=== PATIENT | male | born 1945 | race Caucasian/White ===

== ENCOUNTER 2018-09-19 07:30 | Day surgery (SDC) | payer MEDICARE ==
[~2018-09-19] VITALS: Ht 185.4 cm; Wt 117.0 kg
[2018-09-19] VITALS (9 sets, daily range): BP systolic 115–162; BP diastolic 77–100; PULSE 62–65; TEMP 97.9
[2018-09-19] MEDS ORDERED: JANUVIA 100MG100 MG PO (07:50)
[2018-09-19] MEDS ORDERED: BYSTOLIC10 MG PO (07:50)
[2018-09-19] MEDS ORDERED: PRINIVIL40 MG PO (07:51)
[2018-09-19] MEDS ORDERED: LIPITOR 10MG10 MG PO (07:51)
[2018-09-19] MEDS ORDERED: GLUCOTROL XL2.5 MG PO (07:51)
[2018-09-19] MEDS ORDERED: MAXZIDE 50 MG-71 TAB PO (07:52)
[2018-09-19] MEDS ORDERED: TRICOR145 MG PO (07:53)
[2018-09-19] MEDS ORDERED: NEURONTIN100 MG/CAP PO (07:53)
[2018-09-19 08:20] LABS: HEMATOCRIT 38.1 % (42.0-52.0); MEAN CELL VOLUME 84 fl (80.0-100.0); MEAN CORPUSCULAR HEMOGLOBIN 29 pg (27.0-31.0); MEAN CORPUSCULAR HGB CONC 34 g/dl (33.0-37.0); MEAN PLATELET VOLUME 10.4 fl (7.4-10.4); PLATELET COUNT 202 K/mm3 (130-400); RED BLOOD COUNT 4.53 M/mm3 (4.20-5.60); REDCELL DISTRIBUTION WIDTH-CV 12.8 % (11.5-14.5)
[2018-09-19 08:26] LABS: PROTHROMBIN TIME 11.5 SECONDS (9.7-12.8)
[2018-09-19 08:31] LABS: CALCIUM 9.6 mg/dL (8.4-10.2); CREATININE, serum 1.95 mg/dL (0.66-1.25); POTASSIUM 3.4 mmol/L (3.4-5.0)
[2018-09-19] MEDS ORDERED: EPA FISH OIL1 SGL PO (08:31)
[2018-09-19] MEDS ORDERED: ASPIRIN E.C. 8181 MG PO (08:32)
--- NOTE | 2018-09-19 10:32 | NUR ---
ALL MEDICATIONS GIVEN WITH VERBAL ORDER AND READBACK WITH MD. SEE MERGE FOR MEDICATION ADMIN TIMES AND RASS ASSESSMENTS DURING AND POST PROCEDURE. POSITIVE BARBEAU'S TEST IN THE RIGHT WRIST. NITROPASTE APPLIED.
--- NOTE | 2018-09-19 12:08 | NUR ---
Was notified by family that they would prefer pt to stay overnight because "insurance will pay for it". This RN explained to family and patient that Dr. Lo does need a medical reason to admit the pt. This RN also called JRAOD Beard and notified her of the family wishes. JAROD Beard aware.
--- NOTE | 2018-09-19 12:30 | NUR ---
Roxann with Case Management in to speak with pt/family.
--- NOTE | 2018-09-19 13:46 | NUR ---
Discharge instructions reviewed with pt/family. Pt/family voice understanding. Pt voided with no complications. Pt tolerated intake with mild nausea, which resolved after food intake. 11cc of air was removed from arm band, no bleeding or hematoma. IV was discontinued with catheter tip intact, no phlebitis or infiltration. Pt was discharged via wheelchair to the care of family in private vehicle with discharge instructions in hand.
== END 2018-09-19 13:45 | disposition home or self-care (01) ==
LOC: COL.CAR 07:30
PROVIDERS: Internal Medicine Cardiovascular Disease
DX: I48.0 Paroxysmal atrial fibrillation (principal); I25.10 Atherosclerotic heart disease of native coronary artery without angina pectoris; R94.39 Abnormal result of other cardiovascular function study; E11.9 Type 2 diabetes mellitus without complications; I10 Essential (primary) hypertension; E78.2 Mixed hyperlipidemia; G47.33 Obstructive sleep apnea (adult) (pediatric); E78.00 Pure hypercholesterolemia, unspecified; Z79.84 Long term (current) use of oral hypoglycemic drugs; Z87.891 Personal history of nicotine dependence
CPT/HCPCS: J1644; J2250; J3010; Q9967

== ENCOUNTER 2019-10-27 23:18 | Inpatient (IN) | payer MEDICARE, OTHER ==
[~2019-10-27] VITALS: Ht 185.4 cm; Wt 125.0 kg
[~2019-10-27 23:18] MED LIST: ASPIRIN E.C. 8181 MG PO; BYSTOLIC10 MG PO; EPA FISH OIL1 SGL PO; GLUCOTROL XL2.5 MG PO; JANUVIA 100MG100 MG PO; LIPITOR 10MG10 MG PO; MAXZIDE 50 MG-71 TAB PO; NEURONTIN100 MG/CAP PO; PRINIVIL40 MG PO; TRICOR145 MG PO
--- NOTE | 2019-10-27 23:20 | NUR ---
Pt report received from Laura at [facility]. [facility] released to start inroute with pt on Bipap at this time.
[2019-10-28] VITALS (755 sets, daily range): BP systolic 146–167; BP diastolic 81–94; PULSE 57–62; TEMP 98.1–98.9; O2SAT 73–100
--- NOTE | 2019-10-28 00:05 | NUR ---
Terence from EMS called with pt report. ETA 7 minutes.
[2019-10-28 02:09] LABS: ARTERIAL BLD GAS O2 SATURATION 93.8 % (92-100); ARTERIAL BLD GAS TCO2 CT 31.6; ARTERIAL BLOOD GAS HCO3 29.9 meq/L (22-26); ARTERIAL BLOOD GAS PCO2 56.7 mmHg (35-45); ARTERIAL BLOOD GAS PO2 68.9 mmHg (80-100); ARTERIAL BLOOD GAS pH 7.34 (7.35-7.45)
[2019-10-28] MEDS ORDERED: ZYLOPRIM 100MG100 MG PO (02:09)
[2019-10-28] MEDS ORDERED: LASIX 40MG TABL40 MG PO (02:10)
[2019-10-28] MEDS ORDERED: NORVASC 10MG10 MG PO (02:11)
[2019-10-28] MEDS ORDERED: GLUCOTROL XL5 MG/TAB PO (02:14)
[2019-10-28] MEDS ORDERED: FLOMAX 0.40.4 MG/CAP PO (02:15)
[2019-10-28] MEDS ORDERED: BYSTOLIC20 MG PO (02:18)
[2019-10-28] MEDS ORDERED: TRADJENTA5 MG PO (02:19)
[2019-10-28] MEDS ORDERED: BROVANA15 MCG/2 M IH (02:20)
[2019-10-28] MEDS ORDERED: YUPELRI175 MCG/3 IH (02:22)
[2019-10-28] MEDS ORDERED: THEO-DUR450 MG PO (02:24)
--- NOTE | 2019-10-28 02:39 | NUR ---
PT IS ON BIPAP DUE TO ABG RESULTS AND THEIR SETTINGS WERE ADJUSTED. PT SETTINGS WERE CHANGED TO 18/8, RATE OF 18 AND FI02 OF 55% ABG WILL BE REPEATED AT 0500.
[2019-10-28 05:46] LABS: ARTERIAL BLD GAS O2 SATURATION 95.3 % (92-100); ARTERIAL BLD GAS TCO2 CT 32.7; ARTERIAL BLOOD GAS HCO3 30.9 meq/L (22-26); ARTERIAL BLOOD GAS PCO2 58.9 mmHg (35-45); ARTERIAL BLOOD GAS PO2 79.1 mmHg (80-100); ARTERIAL BLOOD GAS pH 7.34 (7.35-7.45)
--- NOTE | 2019-10-28 07:10 | NUR ---
Report provided to Cristian Guzman RN. Pt resting on Bipap with eyes closed and television on at this time.
[2019-10-28 07:23] LABS: MEAN CELL VOLUME 96 fl (80.0-100.0); MEAN CORPUSCULAR HGB CONC 30 g/dl (33.0-37.0); PLATELET COUNT 166 K/mm3 (130-400); RED BLOOD COUNT 3.39 M/mm3 (4.20-5.60)
[2019-10-28 07:24] LABS: HEMATOCRIT 32.6 % (42.0-52.0); HEMOGLOBIN 9.8 g/dl (13.5-18.0); MEAN CORPUSCULAR HEMOGLOBIN 29 pg (27.0-31.0)
[2019-10-28 07:33] LABS: INR 1.1 (0.8-3.0); PROTHROMBIN TIME 12.8 SECONDS (9.7-12.8)
[2019-10-28 07:40] LABS: MAGNESIUM 2.4 mg/dL (1.6-2.3); PHOSPHOROUS 5.1 mg/dL (2.5-4.5)
[2019-10-28 07:49] LABS: TROPONIN-I 0.013 ng/mL (0.000-0.035)
[2019-10-28 08:36] LABS: THYROID STIMULATING HORMONE 1.96 uIU/mL (0.465-4.680)
[2019-10-28 09:02] LABS: BAND 3 % (0-10); LYMPHOCYTE 14 % (20.0-51.0); NEUTROPHILS 82 % (42.0-75.2); PLATELET ESTIMATE NORMAL (NORMAL)
--- NOTE | 2019-10-28 10:20 | NUR ---
MD Clotilde in room
--- NOTE | 2019-10-28 10:21 | NUR ---
MD Cornelio here to see pt
[2019-10-28 11:02] LABS: ALBUMIN 3.4 gm/dL (3.5-5.0); BILIRUBIN,TOTAL 0.4 mg/dL (0.0-1.0); CALCIUM 9.1 mg/dL (8.4-10.2); CREATININE, serum 4.56 (0.66-1.25); POTASSIUM 4.3 mmol/L (3.4-5.0); TOTAL PROTEIN 6.7 gm/dL (6.4-8.2)
--- NOTE | 2019-10-28 13:14 | NUR ---
MD Tl in room to assess pt
--- NOTE | 2019-10-28 13:23 | NUR ---
MD Cody here to see pt
--- NOTE | 2019-10-28 15:17 | NUR ---
Daughter Shabnam called and updated on pt status. All questions answered - no concerns. Pt's room phone number provided for when pt is off BiPAP to talk with daughter
[2019-10-28 21:27] LABS: THEOPHYLLINE 8.5 ug/mL (10.0-20.0)
--- NOTE | 2019-10-28 23:00 | NUR ---
PT RESTING IN BED, DENIES ANY OR DOA, PT CURRENTLY ON BIPAP AND TOLERATING WELL. PT CURRENTLY REMAINS ON BUMEX GTT. VSS, CARDOZA REMAINS IN PLACE. UO ADEQUATE SINCE START OF SHIFT AT 75ML/HR. WILL CONTINUE TO MONITOR PT STATUS AND UPDATE PROVIDERS NEEDED.
[2019-10-29] VITALS (540 sets, daily range): BP systolic 149–188; BP diastolic 82–115; PULSE 54–65; TEMP 97.7–98.7; O2SAT 84–100
[2019-10-29 03:58] LABS: ARTERIAL BLD GAS O2 SATURATION 97.4 % (92-100); ARTERIAL BLD GAS TCO2 CT 29.9; ARTERIAL BLOOD GAS BASE EXCESS 1.6 (-2-2); ARTERIAL BLOOD GAS HCO3 28.3 meq/L (22-26); ARTERIAL BLOOD GAS PCO2 54.1 mmHg (35-45); ARTERIAL BLOOD GAS PO2 95.5 mmHg (80-100); ARTERIAL BLOOD GAS pH 7.34 (7.35-7.45)
[2019-10-29 04:59] LABS: BASO % 0.1 % (0.0-2.0); GRAN # 6.5 (1.4-6.5); GRAN % 87.7 % (42.2-75.2); LYMPH # 0.6 (1.2-3.4); LYMPH % 7.7 % (20.0-51.0); MEAN CELL VOLUME 96 fl (80.0-100.0); MEAN CORPUSCULAR HGB CONC 31 g/dl (33.0-37.0); MEAN PLATELET VOLUME 11.6 fl (7.4-10.4); MONO # 0.2 (0.1-0.6); MONO % 3.2 % (1.7-9.3); PLATELET COUNT 159 K/mm3 (130-400); RED BLOOD COUNT 3.19 M/mm3 (4.20-5.60); REDCELL DISTRIBUTION WIDTH-CV 14.9 % (11.5-14.5)
[2019-10-29 05:01] LABS: HEMATOCRIT 30.7 % (42.0-52.0); HEMOGLOBIN 9.4 g/dl (13.5-18.0); MEAN CORPUSCULAR HEMOGLOBIN 29 pg (27.0-31.0)
[2019-10-29 05:08] LABS: CREATININE, serum 5.05 (0.66-1.25); MAGNESIUM 2.4 mg/dL (1.6-2.3); PHOSPHOROUS 5.1 mg/dL (2.5-4.5); POTASSIUM 4.6 mmol/L (3.4-5.0)
[2019-10-29 05:16] LABS: THEOPHYLLINE 4.6 ug/mL (10.0-20.0)
--- NOTE | 2019-10-29 10:00 | NUR ---
MD Tl notified of hypertension - orders changed by
--- NOTE | 2019-10-29 10:56 | NUR ---
SW met at the patient's door to discuss discharge plan. The patient lives alone outside of [place]. He reports needing more assistance with ADLs recently and has a cane, walker, CPAP, and home oxygen from [facility]. He states that he has been utilizing the walker more lately. The patient's primary care provider is JAROD Plasencia and he receives his medications at [facility]. The patient does not have a DPOA-HC completed. He states that he has three children: Shabnam Day (ph#[phone]), Yvette Mary, and Damian. Shabnam lives in [place], Yvette in [place], and Damian in [place]. The patient reports that he would like to return home, if able to. PT/OT evaluated the patient and are recommending post-acute rehab or IPR for the patient. SW attempted to contact the patient's daughter, Shabnam. SW left her a voicemail. NATASHA attempted to contact Yvette. The number was disconnected. SW to follow up with the patient about PT/OT's recommendations.
--- NOTE | 2019-10-29 11:30 | NUR ---
MD Cody in room - plan per MD Cody and pt is to continue IV diuresis and reassess kidney function tomorrow then decide on if hemodialysis would be required. Pt's daughter Shabnam called and updated on plan of care - all questions answered
--- NOTE | 2019-10-29 12:55 | NUR ---
Pt placed on BiPAP after lunch while up to recliner. Pt tolerating well with no complaints from pt.
[2019-10-30] VITALS (351 sets, daily range): BP systolic 120–157; BP diastolic 55–97; PULSE 54–78; TEMP 97.9–98.4; O2SAT 76–99
[2019-10-30 05:56] LABS: ARTERIAL BLD GAS O2 SATURATION 71.1 % (92-100); ARTERIAL BLD GAS TCO2 CT 32.1; ARTERIAL BLOOD GAS BASE EXCESS 3.5 (-2-2); ARTERIAL BLOOD GAS HCO3 30.3 meq/L (22-26); ARTERIAL BLOOD GAS pH 7.34 (7.35-7.45)
[2019-10-30 05:57] LABS: ARTERIAL BLOOD GAS PO2 36.7 mmHg (80-100)
[2019-10-30 06:18] LABS: ARTERIAL BLD GAS O2 SATURATION 91.2 % (92-100); ARTERIAL BLD GAS TCO2 CT 32.8; ARTERIAL BLOOD GAS BASE EXCESS 5.4 (-2-2); ARTERIAL BLOOD GAS HCO3 31.2 meq/L (22-26); ARTERIAL BLOOD GAS PCO2 51.9 mmHg (35-45); ARTERIAL BLOOD GAS PO2 59.8 mmHg (80-100)
[2019-10-30 06:28] LABS: BASO % 0.1 % (0.0-2.0); EOS % 0.1 % (0-4.0); GRAN # 6.9 (1.4-6.5); GRAN % 74.8 % (42.2-75.2); HEMATOCRIT 33.1 % (42.0-52.0); HEMOGLOBIN 10.3 g/dl (13.5-18.0); LYMPH # 1.2 (1.2-3.4); LYMPH % 12.7 % (20.0-51.0); MEAN CELL VOLUME 95 fl (80.0-100.0); MEAN CORPUSCULAR HEMOGLOBIN 29 pg (27.0-31.0); MEAN CORPUSCULAR HGB CONC 31 g/dl (33.0-37.0); MEAN PLATELET VOLUME 11.9 fl (7.4-10.4); MONO % 11.1 % (1.7-9.3); PLATELET COUNT 160 K/mm3 (130-400); REDCELL DISTRIBUTION WIDTH-CV 14.9 % (11.5-14.5)
[2019-10-30 06:52] LABS: CALCIUM 9.4 mg/dL (8.4-10.2); CREATININE, serum 4.91 (0.66-1.25); MAGNESIUM 2.3 mg/dL (1.6-2.3); PHOSPHOROUS 5.5 mg/dL (2.5-4.5)
--- NOTE | 2019-10-30 11:42 | NUR ---
NATASHA contacted and updated the patient's daughter, Shabnam. Shabnam is agreeable with the patient needing post-acute rehab upon discharge. Shabnam reports that placement in [place] would be ideal, since her sister lives in [place]. She states her preferences would be 1) [facility] 2) [facility] 3) [facility]. SW then contacted the patient to discuss therapies recommendations and his daughter's preferences. The patient reports that he would be agreeable to post-acute rehab and he would prefer 1) [facility] 2) [facility]. His at [facility] and he does not want to go there. SW attempted to contact Sona at [facility]. SW left her a voicemail and faxed over a referral. Tila at [facility] reports that they are not taking any new patients right now. NATASHA updated the patient. He states that his next preference would be [facility]. NATASHA consulted IPR Director, Roxann. NATASHA awaiting their screens and will update the patient's daughter on his preferences for rehab.
--- NOTE | 2019-10-30 14:45 | NUR ---
Report called to Olga BOYCE. Will transfer to room 317
--- NOTE | 2019-10-30 15:25 | NUR ---
Transfered to room 317 via wheel chair. Olga BOYCE aware of arrival. Spoke with Serafin Webster RN in clinical laboratory aides teacher prior to transfer, aware of tomorrow's procedure.
--- NOTE | 2019-10-30 19:19 | NUR ---
Patient was a transfer from ICU. Was assisted to restroom where he had a meduim bowel movement. Stand by assitance from restroom to recliner and used walker. Graham is to dependent drain, urine is clear and yellow. Legs are elevated and noted to have 1-2+ edema. Lungs diminished and slight wheezing noted. Is on telemetry, heart rate is regular. Bowel sounds active. IV bumex resumed at 5ml/hr. Oxygen is in place at 4 LPM. Is aware he is NPO after midnight for dialysis cath procedure. Did have questions regarding procedure and how it works. Did visit with patient regarding this, he verbalized understanding. Call light and personal items are within reach.
--- NOTE | 2019-10-30 20:00 | NUR ---
At time of assessment, patient is sitting in recliner and requests to get into bed to sleep. He transfers with standby assist and becomes short of air with exertion. This SOA resolves quickly when he gets to bed. He is on 4L O2 nasal cannula. Heart sounds are normal and irregular, lung sounds are clear over coarse crackles bilaterally. He complains of neuropathy pain in his R great toe but gabapentin is currently being held per doctor's orders. He has 3+ edema in both lower legs. The patient has been notified of his procedure in the morning and NPO after midnight status. His daughter Shabnam has also been updated and has requested to be contacted throughout the day tomorrow. Will make note of this during shift report in the morning. Will continue to monitor.
[2019-10-30 21:00] LABS: HEPATITIS B SURFACE ANTIBODY <2.0 (()); HEPATITIS B SURFACE ANTIGEN Negative (Negative); HEPATITIS C VIRUS ANTIBODY Negative (Negative)
[2019-10-31 03:46] VITALS: BP 148/56; PULSE 60; TEMP 97.7
--- NOTE | 2019-10-31 05:53 | NUR ---
Patient has had an uneventful night and has slept throughout the night. He tolerated BIPAP well. No concerns are voiced tonight. Consent for hemodialysis catheter placement signed. Will continue to monitor.
[2019-10-31 06:17] LABS: PROTHROMBIN TIME 11.8 SECONDS (9.7-12.8)
[2019-10-31 06:20] LABS: PARTIAL THROMBOPLASTIN TIME 29.2 SECONDS (26.0-37.0)
[2019-10-31 06:23] LABS: THEOPHYLLINE 2.4 ug/mL (10.0-20.0)
[2019-10-31 06:26] LABS: CALCIUM 9.1 mg/dL (8.4-10.2); CREATININE, serum 4.65 (0.66-1.25); MAGNESIUM 2.2 mg/dL (1.6-2.3); PHOSPHOROUS 5.9 mg/dL (2.5-4.5); POTASSIUM 3.9 mmol/L (3.4-5.0)
[2019-10-31 07:46] VITALS: BP 158/73; PULSE 55; TEMP 97.6
[2019-10-31 08:46] VITALS: BP 153/96; PULSE 60
--- NOTE | 2019-10-31 08:49 | NUR ---
SEE MERGE DOCUMENTATION FOR MEDICATION ADMINISTRATION AND INTRA/POST PROCEDURE SEDATION ASSESSMENTS.
--- NOTE | 2019-10-31 09:56 | NUR ---
Patient down for dialysis catheter placement at 0800, spoke with Lori who said she would be accepting patient immediately after procedure.
--- NOTE | 2019-10-31 10:10 | NUR ---
NATASHA contacted and updated the patient's daughter, Shabnam, on the patient's preferences. Shabnam reports that she was informed by Dr. Ross that the patient is going to need dialysis on // and that the patient is going to need a facility in [place] or [place]. NATASHA informed Shabnam of the facilities in [place] and [place] and informed her that we would talk to the patient about these options. Shabnam verbalized understanding and was in agreeance to this. NATASHA updated medical unit dialysis social workerKita. SW to continue to follow.
[2019-10-31 12:07] VITALS: BP 124/79; PULSE 61; TEMP 97.1
--- NOTE | 2019-10-31 14:45 | NUR ---
Roxann, IPR Director contacted NATASHA and states she can take the patient on for post acute rehab. Roxann states she contacted the patient's daughter, Shabnam to inform her and she is "on board." Roxann will meet with the patient in the morning to get his decision, he will discuss it with Shabnam later today. NATASHA contacted Shabnam to ask if she had any other questions or concerns. Shabnam states she will talk to the patient this evening. Will continue to monitor.
[2019-10-31 16:46] VITALS: BP 140/78; PULSE 55; TEMP 98.3
[2019-10-31 19:30] VITALS: BP 115/58; PULSE 62; TEMP 97.7
--- NOTE | 2019-10-31 19:45 | NUR ---
Patient assessed at this time. Denies having pain and discomfort. Dressing to right IJ CDI. On oxygen at 4 L/min via NC. Denies SOB and dyspnea. Voices no questions, needs, or concerns at this time. Resting in bed with call light within reach.
[2019-11-01 00:48] VITALS: BP 142/69; PULSE 57; TEMP 97.9
--- NOTE | 2019-11-01 04:26 | NUR ---
Patient has been awake on and off this shift. Only wore BIPAP for short time. Currently on oxygen at 4 L/min via NC. Denies having pain and discomfort. Resting in bed with call light within reach.
[2019-11-01 05:10] VITALS: BP 161/83; PULSE 64; TEMP 98.5
[2019-11-01 06:47] LABS: CALCIUM 8.7 mg/dL (8.4-10.2); CREATININE, serum 4.16 (0.66-1.25); MAGNESIUM 2.1 mg/dL (1.6-2.3); PHOSPHOROUS 5.5 mg/dL (2.5-4.5); POTASSIUM 3.9 mmol/L (3.4-5.0)
[2019-11-01 08:11] VITALS: BP 138/70; PULSE 58; TEMP 98.4
--- NOTE | 2019-11-01 10:54 | NUR ---
Pt sleeping upon entry, easily awakened, no C/O pain at this time, shift assessments complete, left Pt call light in reach, bed in lowest position.
--- NOTE | 2019-11-01 11:21 | NUR ---
Movie Writer attended clinical rounds with the team and patient agrees to discharge to Inpatient Rehab. Patient to discharge to [facility] today. Hospitalist requested patient's family bring in patient's home CPAP. SW contacted patient's daughter, Shabnam to provide update. Shabnam agrees to discharge to [facility]. Shabnam also requested that team conference notes be emailed to her at [email or web address]. Shabnam reports a family member may be able to bring in patient's CPAP to the hospital tomorrow. No additional needs at this time.
[2019-11-01 12:03] VITALS: BP 142/76; PULSE 59; TEMP 98.2
[2019-11-01 16:10] VITALS: BP 154/83; PULSE 54; TEMP 98.7
[2019-11-01] MEDS ORDERED: ZYLOPRIM 100MG100 MG PO (19:25)
[2019-11-01] MEDS ORDERED: BROVANA15 MCG/2 M IH (19:26)
[2019-11-01] MEDS ORDERED: ASPIRIN E.C. 8181 MG PO (19:27)
[2019-11-01] MEDS ORDERED: LIPITOR 10MG10 MG PO (19:28)
[2019-11-01] MEDS ORDERED: TRICOR145 MG PO (19:29)
[2019-11-01] MEDS ORDERED: LASIX 40MG TABL40 MG PO (19:30)
[2019-11-01] MEDS ORDERED: NEURONTIN100 MG/CAP PO (19:31)
[2019-11-01] MEDS ORDERED: TRADJENTA5 MG PO (19:32)
[2019-11-01] MEDS ORDERED: PRINIVIL40 MG PO (19:33)
[2019-11-01] MEDS ORDERED: BYSTOLIC20 MG PO (19:33)
[2019-11-01] MEDS ORDERED: EPA FISH OIL1 SGL PO (19:34)
[2019-11-01] MEDS ORDERED: YUPELRI175 MCG/3 IH (19:35)
[2019-11-01] MEDS ORDERED: FLOMAX 0.40.4 MG/CAP PO (19:36)
[2019-11-01] MEDS ORDERED: THEO-DUR450 MG PO (19:37)
[2019-11-01] MEDS ORDERED: NORVASC 10MG10 MG PO (19:38)
[2019-11-01] MEDS ORDERED: GLUCOTROL XL5 MG/TAB PO (19:39)
== END 2019-11-01 18:30 | DRG 291 ==
LOC: IMCU 23:18 → ICU 10-28 00:17 → MEDICAL 10-28 00:17
PROVIDERS: Internal Medicine Nephrology; Internal Medicine Pulmonary Disease; Nurse Practitioner Family; Student in an Organized Health Care Education/Training Program; ADMIT Internal Medicine
PROC: 5A09457 Assistance with Respiratory Ventilation, 24-96 Consecutive Hours, Continuous Positive Airway Pressure (ICD-10-PCS; 2019-10-28)
PROC: 0W9B3ZZ Drainage of Left Pleural Cavity, Percutaneous Approach (ICD-10-PCS; 2019-10-30)
PROC: 0W993ZZ Drainage of Right Pleural Cavity, Percutaneous Approach (ICD-10-PCS; 2019-10-30)
PROC: 0JH63XZ Insertion of Tunneled Vascular Access Device into Chest Subcutaneous Tissue and Fascia, Percutaneous Approach (ICD-10-PCS; principal; 2019-10-31)
PROC: 02H633Z Insertion of Infusion Device into Right Atrium, Percutaneous Approach (ICD-10-PCS; 2019-10-31)
PROC: 5A1D70Z Performance of Urinary Filtration, Intermittent, Less than 6 Hours Per Day (ICD-10-PCS; 2019-10-31)
DX: I13.2 Hypertensive heart and chronic kidney disease with heart failure and with stage 5 chronic kidney disease, or end stage renal disease (principal); J96.21 Acute and chronic respiratory failure with hypoxia; N18.6 End stage renal disease; I50.33 Acute on chronic diastolic (congestive) heart failure; J96.22 Acute and chronic respiratory failure with hypercapnia; J44.1 Chronic obstructive pulmonary disease with (acute) exacerbation; I24.8 Other forms of acute ischemic heart disease; E66.2 Morbid (severe) obesity with alveolar hypoventilation; E87.2 Acidosis; J90 Pleural effusion, not elsewhere classified; E78.5 Hyperlipidemia, unspecified; K59.00 Constipation, unspecified; N40.0 Benign prostatic hyperplasia without lower urinary tract symptoms; E11.22 Type 2 diabetes mellitus with diabetic chronic kidney disease; E11.42 Type 2 diabetes mellitus with diabetic polyneuropathy; I27.20 Pulmonary hypertension, unspecified; M10.9 Gout, unspecified; I25.10 Atherosclerotic heart disease of native coronary artery without angina pectoris; Z96.641 Presence of right artificial hip joint; Z86.14 Personal history of Methicillin resistant Staphylococcus aureus infection; Z98.1 Arthrodesis status; Z79.82 Long term (current) use of aspirin; Z87.891 Personal history of nicotine dependence
CPT/HCPCS: 99232-AI; 99233-AI; 99239; J0690; J1644; J1815; J2250; J2916; J2920; J3010; J7030; J7512; Q5105

== ENCOUNTER 2019-11-01 13:17 | Inpatient (IN) | payer MEDICARE ==
[~2019-11-01] VITALS: Ht 185.4 cm; Wt 113.0 kg
[~2019-11-01 13:17] MED LIST changes: +BROVANA15 MCG/2 M IH; +BYSTOLIC20 MG PO; +FLOMAX 0.40.4 MG/CAP PO; +GLUCOTROL XL5 MG/TAB PO; +LASIX 40MG TABL40 MG PO; +NORVASC 10MG10 MG PO; +THEO-DUR450 MG PO; +TRADJENTA5 MG PO; +YUPELRI175 MCG/3 IH; +ZYLOPRIM 100MG100 MG PO
[2019-11-01] MEDS ORDERED: ZYLOPRIM 100MG100 MG PO (19:25)
[2019-11-01] MEDS ORDERED: BROVANA15 MCG/2 M IH (19:26)
[2019-11-01] MEDS ORDERED: ASPIRIN E.C. 8181 MG PO (19:27)
[2019-11-01] MEDS ORDERED: LIPITOR 10MG10 MG PO (19:28)
[2019-11-01] MEDS ORDERED: TRICOR145 MG PO (19:29)
[2019-11-01] MEDS ORDERED: LASIX 40MG TABL40 MG PO (19:30)
[2019-11-01] MEDS ORDERED: NEURONTIN100 MG/CAP PO (19:31)
[2019-11-01] MEDS ORDERED: TRADJENTA5 MG PO (19:32)
[2019-11-01] MEDS ORDERED: PRINIVIL40 MG PO (19:33)
[2019-11-01] MEDS ORDERED: BYSTOLIC20 MG PO (19:33)
[2019-11-01] MEDS ORDERED: EPA FISH OIL1 SGL PO (19:34)
[2019-11-01] MEDS ORDERED: YUPELRI175 MCG/3 IH (19:35)
[2019-11-01] MEDS ORDERED: FLOMAX 0.40.4 MG/CAP PO (19:36)
[2019-11-01] MEDS ORDERED: THEO-DUR450 MG PO (19:37)
[2019-11-01] MEDS ORDERED: NORVASC 10MG10 MG PO (19:38)
[2019-11-01] MEDS ORDERED: GLUCOTROL XL5 MG/TAB PO (19:39)
--- NOTE | 2019-11-01 22:00 | NUR ---
PT RESTING IN BED. DENIES PAIN. O2 2L NC. REFUSED BIPAP TONIGHT. TELE NSR. CARDOZA DRAINING FREELY. NO NEEDS AT THIS TIME.
--- NOTE | 2019-11-02 05:49 | NUR ---
MIN 1 ASSIST AMB AROUND BED WITH WALKER TO RECLINER. STEADY SLOW GAIT. NO COMPLAINTS VERBALIZED. CALL LIGHT IN REACH. NEEDS ASSIST WITH HYGIENE AFTER BM. HAS SCRATCH TO RT LOWER ABD THAT BLED ON GOWN. CHANGED GOWN.
[2019-11-02 06:11] VITALS: BP 167/98; PULSE 58; TEMP 97.3
--- NOTE | 2019-11-02 09:00 | NUR ---
Assessment complete. Pt resting in chair. Awoke to my voice upon entry. States he feels pretty good today. I brought in his breakfast tray before he went to dialysis. He ate independently. He denied pain or discomfort at this time. IV site CD&I. No other needs were expressed at this time. Call light is in reach.
--- NOTE | 2019-11-02 09:00 | NUR ---
Pt alert and partially oriented. He was aware of his name, , place, and town, but was unable to state the year or who the president was. He was pleasant to speak too and seemed to be in good spirits. No other needs at this time. Call light in reach.
[2019-11-02 09:21] LABS: HEMOGLOBIN 10.2 g/dl (13.5-18.0); MEAN CELL VOLUME 95 fl (80.0-100.0); MEAN CORPUSCULAR HEMOGLOBIN 29 pg (27.0-31.0); MEAN CORPUSCULAR HGB CONC 31 g/dl (33.0-37.0); MEAN PLATELET VOLUME 11.7 fl (7.4-10.4); PLATELET COUNT 151 K/mm3 (130-400); RED BLOOD COUNT 3.47 M/mm3 (4.20-5.60); REDCELL DISTRIBUTION WIDTH-CV 14.6 % (11.5-14.5)
[2019-11-02 09:24] LABS: HEMATOCRIT 32.9 % (42.0-52.0)
[2019-11-02 09:33] LABS: ALBUMIN 3.3 gm/dL (3.5-5.0); CALCIUM 8.7 mg/dL (8.4-10.2); CREATININE, serum 2.62 (0.66-1.25); POTASSIUM 3.8 mmol/L (3.4-5.0)
[2019-11-02 10:05] LABS: BAND 1 % (0-10); EOSINOPHIL 1 % (0-4); LYMPHOCYTE 12 % (20.0-51.0); METAMYELOCYTE 3 % (0-0); NEUTROPHILS 76 % (42.0-75.2); PLATELET ESTIMATE NORMAL (NORMAL)
[2019-11-02 10:06] LABS: POLYCHROMASIA 2+
--- NOTE | 2019-11-02 15:19 | NUR ---
NATASHA contacted via telephone to complete initial intake since the patient is new to [facility]. The patient is currently under contact precautions. The patient lives alone in [place]. The patient's PCP is Sylvia Santos APRN and patient receives medications from [facility] in [place]. The patient has a cane, walker, home oxygen, and a CPAP. The patient does not have advanced directives in the EMR but has three children; Shabnam in , Damian in [place], and Melissa in [place]. NATASHA contacted Shabnam ([phone]) to introduce oneself and discuss IPR procedures. All questions and concerns addressed. commissioner of relocation services will continue to follow.
--- NOTE | 2019-11-02 15:46 | NUR ---
Assisted pt in ambulating from window seat back to the bed. He did very well with minimal assistance. His steps seem very heavy while ambulating and he leans alot side to side with each step. He denies pain or discomfort. Graham catheter patent draining clear yellow urine at this time. No other needs Call light in reach as well as phone.
[2019-11-02 16:37] VITALS: BP 157/90; PULSE 64; TEMP 98.3
--- NOTE | 2019-11-02 18:33 | NUR ---
Pt had no issues today. Ambulate in room to restroom and back and forth from the chair to the bed. With 1 assist he continues to walk safely but unsteady. Pt was eating dinner at this time. No other needs. Call light and phon ein reach.
[2019-11-02 20:19] VITALS: BP 168/83; PULSE 62; TEMP 98.7
--- NOTE | 2019-11-02 21:00 | NUR ---
Initial shift assessment done- sitting up in the recliner chair-denies pain, o2 at 2L/nc, Dialysis cath to right chest, waiting for his CPAP machine from Home- will be delivered by gely blair--
--- NOTE | 2019-11-02 22:30 | NUR ---
Back to bed- CPAP from home here now- respiratory therapy to help set up
[2019-11-03 06:16] VITALS: BP 167/87; PULSE 65; TEMP 98.4
--- NOTE | 2019-11-03 07:36 | NUR ---
Quiet night- Up in chair since about 429-- no requests, o2 at 2L/nc. denies pain/SOB
--- NOTE | 2019-11-03 12:16 | NUR ---
pt aox4. denies pain. therapy gave bath this AM. blood intact and draining. toleratign PO. calls for assistance. no new concerns at thsi time
[2019-11-03 17:20] VITALS: BP 175/81; PULSE 67; TEMP 98.8
[2019-11-03 17:33] VITALS: BP 168/84; PULSE 67
--- NOTE | 2019-11-03 19:51 | NUR ---
Patient up in chair during change of shift report from day shift nurseRamesh. No c/o pain during report. Oxygen continues per NC.
--- NOTE | 2019-11-04 01:00 | NUR ---
PATIENT SLEEPING, OBSERVED BREATHING NONLABORED AND EVEN, DOES NOT AWAKEN WHEN DOOR TO ROOM IS OPENED BY STAFF. BED ALARM ON.
[2019-11-04 06:03] VITALS: BP 173/78; PULSE 61; TEMP 98.1
--- NOTE | 2019-11-04 07:24 | NUR ---
PATIENT UP IN CHAIR DURING CHANGE OF SHIFT REPORT GIVEN TO DAY SHIFT NURSE, SANTY. DENIES ANY NEEDS DURING REPORT. O2/NC PUT BACK ON PATIENT W/CPAP REMOVED FOR THE DAY. NANI CONTINUES TO DD.
[2019-11-04 08:41] VITALS: BP 161/85; PULSE 76; TEMP 97.9
[2019-11-04 08:43] LABS: HEMOGLOBIN 10.7 g/dl (13.5-18.0); MEAN CELL VOLUME 95 fl (80.0-100.0); MEAN CORPUSCULAR HEMOGLOBIN 29 pg (27.0-31.0); MEAN CORPUSCULAR HGB CONC 31 g/dl (33.0-37.0); MEAN PLATELET VOLUME 12.1 fl (7.4-10.4); PLATELET COUNT 165 K/mm3 (130-400); RED BLOOD COUNT 3.64 M/mm3 (4.20-5.60); REDCELL DISTRIBUTION WIDTH-CV 14.5 % (11.5-14.5)
[2019-11-04 08:51] LABS: ALBUMIN 3.3 gm/dL (3.5-5.0); BILIRUBIN,TOTAL 0.7 mg/dL (0.0-1.0); CALCIUM 8.9 mg/dL (8.4-10.2); CREATININE, serum 3.23 (0.66-1.25); HEMATOCRIT 34.6 % (42.0-52.0); POTASSIUM 3.9 mmol/L (3.4-5.0); TOTAL PROTEIN 6.4 gm/dL (6.4-8.2)
[2019-11-04 09:58] LABS: LYMPHOCYTE 14 % (20.0-51.0); METAMYELOCYTE 2 % (0-0); NEUTROPHILS 77 % (42.0-75.2); PLATELET ESTIMATE NORMAL (NORMAL)
[2019-11-04 17:25] VITALS: BP 172/83; PULSE 67; TEMP 98.7
--- NOTE | 2019-11-04 18:00 | NUR ---
States feels better today. O2 on at 3L/ nasal cannula. Denies shortness of breath. Ambulates in room with walker and standby assist. Steady on feet. Complained of right hip pain. Medicated with Tylenol with improvement of pain. Ice pack to hip for comfort. Needs assist getting legs into bed.
--- NOTE | 2019-11-04 19:15 | NUR ---
PATIENT UP IN RECLINER CHAIR DURING CHANGE OF SHIFT REPORT FROM DAY SHIFT NURSESANTY. CHAIR ALARM ON.
[2019-11-04 21:04] VITALS: BP 109/69; PULSE 70; TEMP 97.7
[2019-11-04 21:28] VITALS: BP 119/72; PULSE 82
--- NOTE | 2019-11-04 21:38 | NUR ---
PATIENT C/O RIGHT THIGH&R KNEE NUMBNESS W/R HIP PAIN SINCE AFTER LUNCH AND PT. PATIENT HAD CONTROLLED FALL (USING GAIT BELT IN PLACE AT WAIST) ONTO R THIGH/HIP WHILE WALKING TO BATHROOM. WITH x4 ASST PLACED ONTO BSC AT BEDSIDE. PATIENT STATES NUMBNESS TO R THIGH/KNEE AND R HIP PAIN IS UNCHANGED POST FALL AND ABLE TO ROCK RIGHT THIGH BACK AND FORTH PER SELF ON COMMAND AND REPORTS R HIP PAIN IS ALLEVIATED WITH ROCKING MOVEMENT. INFORMED TREVOR KOVACS OF INCIDENT WITH NO NEW ORDERS GIVEN.
--- NOTE | 2019-11-05 01:25 | NUR ---
PATIENT LAYING ON BACK, EYES CLOSED, DOES NOT AWAKEN WHEN DOOR TO ROOM IS OPENED BY STAFF. BED ALARM ON.
--- NOTE | 2019-11-05 02:46 | NUR ---
PATIENT INITALLY REQUESTED TO GET OUT OF BED INTO RECLINER CHAIR, REMINDED TO STAY IN BED DUE TO SAFETY CONCERNS WITH PATIENT'S HAVING PROBLEMS WITH WALKING EARLIER AND FALLING. PATIENT REPORT RIGHT THIGH "IT'S STILL NUMBNESS" BUT ABLE TO ROCK RIGHT THIGH FROM SIDE TO SIDE ON COMMAND, PATIENT STATE HE CONTINUES TO INTERMITTENTLY ROCK RIGHT THIGH FROM SIDE TO SIDE FOR COMFORT. C/O OF PULLING TO MUSCLE ABOUT RIGHT KNEE WHEN ATTEMPTED TO LAY FLAT IN BED. APPLIED HEATING PAD TO RIGHT UPPER LEG AND TYLENOL GIVEN, SEE eMAR. WHEN ASKED, PATIENT DENIES HAVING NUMBNESS TO RIGHT THIGH IN PAST, DOES HAVE HX OF NEUROPATHY TO TOES OF FEET BUT NO NUMBNESS TO LEGS. REPORTED NUMBNESS STATED AFTER LUNCH AND "EXERCISING" WITH PHYSICAL THERAPY ON TUESDAY. BED ALARM ON.
[2019-11-05 05:40] VITALS: BP 129/82; PULSE 60; TEMP 97.7
--- NOTE | 2019-11-05 07:00 | NUR ---
SALINE LOCK STARTED TO LEFT WRIST WITH #22 GAUGE WITH NO PROBLEM FOR RADIOLOGY TEST TO BE DONE THIS AM.
[2019-11-05 07:12] LABS: MEAN CELL VOLUME 95 fl (80.0-100.0); MEAN CORPUSCULAR HGB CONC 31 g/dl (33.0-37.0); MEAN PLATELET VOLUME 12.7 fl (7.4-10.4); PLATELET COUNT 165 K/mm3 (130-400); RED BLOOD COUNT 2.47 M/mm3 (4.20-5.60); REDCELL DISTRIBUTION WIDTH-CV 14.6 % (11.5-14.5)
[2019-11-05 07:19] LABS: HEMATOCRIT 23.5 % (42.0-52.0); HEMOGLOBIN 7.3 g/dl (13.5-18.0); MEAN CORPUSCULAR HEMOGLOBIN 30 pg (27.0-31.0)
[2019-11-05 07:30] LABS: ALBUMIN 2.6 gm/dL (3.5-5.0); CALCIUM 8.3 mg/dL (8.4-10.2); CREATININE, serum 3.94 (0.66-1.25); POTASSIUM 4.3 mmol/L (3.4-5.0)
--- NOTE | 2019-11-05 07:35 | NUR ---
PATIENT RESTING IN BED DURING CHANGE OF SHIFT REPORT GIVEN TO DAY SHIFT NURSEKATHRYN. BED ALARM ON.
[2019-11-05 08:55] LABS: BAND 4 % (0-10); LYMPHOCYTE 16 % (20.0-51.0); NEUTROPHILS 79 % (42.0-75.2)
[2019-11-05 09:01] LABS: HYPOCHROMIA 2+
[2019-11-05 09:02] LABS: MICROCYTOSIS 1+
[2019-11-05 09:03] LABS: PLATELET ESTIMATE NORMAL (NORMAL)
[2019-11-05 09:40] LABS: PATHOLOGY DIFF REVIEW OK
--- NOTE | 2019-11-05 09:57 | NUR ---
0800 patient down for VQ scan, transferred to [facility] with assist of slide board and 3 staff. He grimaced with movement, has complained of rt hip pain. Testing took approximately 30 minutes and patient returned to bed and breakfast was given as patient was to go to dialysis immediately after eating. He reports that his knee gave out while walking to bathroom with staff. He had stated that he had been having the hip pain which was new and right knee numbness. There is some bruising to bilateral inner thighs that patient states is new. He states he is feeling down, like everything has just "gone to hell."
--- NOTE | 2019-11-05 16:06 | NUR ---
Buyer Renter called patient to check in after the weekend. Patient states the weekend was not too bad. Patient states he fell last night but is doing okay. Patient denies any questions or concerns at this time. SW to continue to follow.
[2019-11-05 16:30] VITALS: BP 125/70; PULSE 70; TEMP 98.4
[2019-11-05 18:16] LABS: HEMATOCRIT 21.3 % (42.0-52.0); HEMOGLOBIN 6.7 g/dl (13.5-18.0)
--- NOTE | 2019-11-05 19:12 | NUR ---
Received call of critical lab value for patient. HgB is 6.7. Notified Tiffany of result, she did place orders to address lab. Report given to oncoming nurse, notified her of new order.
--- NOTE | 2019-11-05 20:00 | NUR ---
At time of assessment, patient is resting in bed. He is on 3L O2 and is tolerating this well. His lungs are clear/diminished and his heart sounds are normal/regular. He has generalized edema in his lower extremities with no pitting. He does not complain of any pain. Will continue to monitor.
[2019-11-05 20:50] VITALS: BP 115/69; PULSE 74; TEMP 98.8
--- NOTE | 2019-11-05 22:28 | NUR ---
Prior to starting 1 unit PRBC transfusion, patient's temp is 100.1. Tiffany Del Valle is contacted prior to starting blood. She told this RN to give 650 mg Tylenol and then start transfusion. She also ordered blood cultures and a UA to be collected. Blood transfusion initiated at 2230, patient educated about side effects and this RN remains at bedside for at least 15 minutes to monitor.
[2019-11-05 22:30] VITALS: BP 126/69; PULSE 73; TEMP 100.1
[2019-11-05 22:45] VITALS: BP 125/66; PULSE 73; TEMP 99.7
[2019-11-05 23:15] VITALS: BP 121/70; PULSE 72; TEMP 99.6
[2019-11-05 23:53] LABS: COLLECTION METHOD CATHETER
[2019-11-06] LABS: MUCOUS Present /lpf; PH 5 (5-8); SQUAMOUS EPITHELIAL 0-2 /hpf; URINE APPEARANCE Cloudy; URINE BACTERIA Rare /hpf; URINE BILIRUBIN Negative (NEGATIVE); URINE BLOOD 2+ (NEGATIVE); URINE COLOR Yellow; URINE GLUCOSE Negative (NEGATIVE); URINE KETONE Negative (NEGATIVE); URINE LEUKOCYTE ESTERASE Trace (NEGATIVE); URINE NITRATE Negative (NEGATIVE); URINE PROTEIN(semi-quant) 2+ (NEGATIVE); URINE UROBILINOGEN Negative (NEGATIVE)
[2019-11-06 00:15] VITALS: BP 115/64; PULSE 72; TEMP 99.9
[2019-11-06 01:15] VITALS: BP 124/75; PULSE 72; TEMP 97.9
--- NOTE | 2019-11-06 01:24 | NUR ---
Blood transfusion stopped at this time. Patient tolerated 1 unit PRBC with no transfusion reaction. His temperature is also down to 97.9 after the Tylenol prior to the transfusion. Will continue to monitor.
[2019-11-06 02:37] LABS: HEMOGLOBIN 7.3 g/dl (13.5-18.0)
[2019-11-06 06:17] VITALS: BP 147/81; PULSE 70; TEMP 98.1
[2019-11-06 07:21] LABS: MEAN CELL VOLUME 95 fl (80.0-100.0); MEAN CORPUSCULAR HGB CONC 32 g/dl (33.0-37.0); MEAN PLATELET VOLUME 11.3 fl (7.4-10.4); PLATELET COUNT 161 K/mm3 (130-400); RED BLOOD COUNT 2.55 M/mm3 (4.20-5.60); REDCELL DISTRIBUTION WIDTH-CV 14.6 % (11.5-14.5)
[2019-11-06 07:27] LABS: HEMATOCRIT 24.3 % (42.0-52.0); HEMOGLOBIN 7.7 g/dl (13.5-18.0); MEAN CORPUSCULAR HEMOGLOBIN 30 pg (27.0-31.0)
[2019-11-06 08:03] LABS: BAND 4 % (0-10); EOSINOPHIL 1 % (0-4); LYMPHOCYTE 12 % (20.0-51.0); METAMYELOCYTE 1 % (0-0); NEUTROPHILS 78 % (42.0-75.2); PLATELET ESTIMATE NORMAL (NORMAL)
--- NOTE | 2019-11-06 11:00 | NUR ---
Patient has been doing well this morning. He is still having sharp pain to right hip when attempting to move around and weakness to that leg. No complaints of nausea. Explained to patient how the fluid restriction works and how much he can have in 24 hours. Patient stated he was no aware he is on a fluid restriction. No other changes at this time. Call light within reach.
--- NOTE | 2019-11-06 13:36 | NUR ---
Admission QIM scores were reviewed by the team. Code of 3 for toilet hygiene was determined by team discussion to be the most usual performance before interventions for this patient during the assessment period. Code of 3 chosen for toileting transfers was determined by team discussion to be the most usual performance before interventions for this patient during the assessment period. Code of 4 chosen for sit to lying was determined by team discussion to be the most usual performance for this patient during the assessment period. Code of 4 chosen for lying to sitting on side of bed was determined by team discussion to be the most usual performance for this patient during the assessment period. Code of 3 chosen for sit to stand was determined by team discussion to be the most usual performance for this patient during the assessment period. Code of 3 chosen for chair/bed to chair transfers was determined by team discussion to be the most usual performance for this patient during the assessment period. Code of 3 chosen for walk 10 feet on uneven surface was determined by team discussion to be the most usual performance for this patient during the assessment period.--Roxann Bobo, PD
[2019-11-06 15:51] VITALS: BP 134/69; PULSE 74; TEMP 98.7
--- NOTE | 2019-11-06 17:15 | NUR ---
Patient stated having increased pain to right hip with movement, he has 3 blisters to his right thigh that he did not have this morning. The blisters are about dime size and red. Notified Abel FISHER, she seen the patient. Patient did not want anything for pain, he stated it is not hurting while laying still. Denies nausea. Notified Dr Smith that there is an order for AV fistula placement, he stated he would notify Dr Jacobs who will be doing the procedure. No other changes at this time. Call light within reach.
--- NOTE | 2019-11-06 20:00 | NUR ---
PATIENT REPORT PAIN TO R HIP WITH MOVEMENT, "I CAN'T LIFT MY LEG" BUT REPORTS HE IS ABLE TO ROCK RIGHT THIGH FROM SIDE TO SIDE. REPORT RIGHT THIGH IS STILL NUMBNESS. PATIENT MOVED LLE WITH NO PROBLEMS, MOVES BUE WITH NO PROBLEMS. REPORTS SOME PAIN RELIEF FROM ICE PACKS BUT NOT FROM HEATING PAD.
--- NOTE | 2019-11-07 00:09 | NUR ---
PATIENT SLEEPING, CPAP ON, CARDOZA IN PLACE, DRAINING WITHOUT PROBLEMS, DOES NOT AWAKEN WHEN DOOR TO ROOM IS OPENED BY STAFF. BED ALARM ON.
--- NOTE | 2019-11-07 02:16 | NUR ---
PATIENT SLEEPING WITH CPAP ON & FUNCTIONING. PATIENT DOES NOT AWAKEN WHEN DOOR TO ROOM IS OPENED BY STAFF. OBSERVED BREATHING NONLABORED AND EVEN. BED ALARM ON.
[2019-11-07 06:02] VITALS: BP 156/81; PULSE 66; TEMP 98.2
[2019-11-07 06:32] LABS: MEAN CELL VOLUME 97 fl (80.0-100.0); MEAN CORPUSCULAR HGB CONC 31 g/dl (33.0-37.0); MEAN PLATELET VOLUME 11.4 fl (7.4-10.4); PLATELET COUNT 173 K/mm3 (130-400); RED BLOOD COUNT 2.32 M/mm3 (4.20-5.60); REDCELL DISTRIBUTION WIDTH-CV 14.6 % (11.5-14.5)
[2019-11-07 06:40] LABS: ALBUMIN 2.8 gm/dL (3.5-5.0); CALCIUM 8.3 mg/dL (8.4-10.2); CREATININE, serum 4.08 (0.66-1.25); PHOSPHOROUS 5.1 mg/dL (2.5-4.5); POTASSIUM 4.3 mmol/L (3.4-5.0)
[2019-11-07 06:41] LABS: HEMATOCRIT 22.4 % (42.0-52.0); MEAN CORPUSCULAR HEMOGLOBIN 30 pg (27.0-31.0)
[2019-11-07 06:43] LABS: HEMOGLOBIN 6.9 g/dl (13.5-18.0)
--- NOTE | 2019-11-07 07:20 | NUR ---
CRITICAL HGB CALLED FROM LAB/MAGI OF 6.9 AND CALLED LAB RESULT TO DR AGUAYO, ALSO INFORMED DOCTOR OF PATIENT STILL C/O OF PAIN AND NOT GETTING UP FOR PT, NO NEW ORDERS GIVEN, INFORMED PATIENT HAS NOT FX, HAS HEMATOMA. INFORMED PATIENT OF DOCTOR CONFIRMING THERE IS NO FX, ENCOURAGING PATIENT TO WORK ON INCREASING OUT OF BED ACTIVITY TOLERATED.
--- NOTE | 2019-11-07 07:27 | NUR ---
PATIENT RESTING IN BED DURING CHANGE OF SHIFT REPORT GIVEN TO DAY SHIFT NURSERENE. BED ALARM ON.
[2019-11-07 07:31] LABS: BAND 4 % (0-10); EOSINOPHIL 4 % (0-4); LYMPHOCYTE 19 % (20.0-51.0); METAMYELOCYTE 5 % (0-0); MYELOCYTE 1 % (0-0); NEUTROPHILS 66 % (42.0-75.2); PLATELET ESTIMATE NORMAL (NORMAL)
--- NOTE | 2019-11-07 08:46 | NUR ---
Pt awake and alert upon entry, has some C/O pain in left hip area, Phy Therapy in room, shift assessments complete, left Pt with Phy Therapy.
[2019-11-07 11:59] VITALS: BP 177/84; PULSE 71; TEMP 98
--- NOTE | 2019-11-07 15:09 | NUR ---
Patient arrived to [facility] Room 337 at 2:00 PM today. Patient resting in bed, call light in reach and bed alarm set. Patient denies questions at this time. Will continue to monitor.
--- NOTE | 2019-11-07 16:39 | NUR ---
Received report from Vanessa, RN reporting that she took off 2000 ml fluid today. Dressing was changed to Rt Subclavian. It was reported that patient had an assisted fall on Tuesday when in the medical unit. He reported having leg pain as well as some right side abdominal pain following that fall. An ultra sound was done of his abdomen and Xray completed for his leg. Results showed an abdominal hematoma that was found through ultra sound imaging. AUSTEN Sandoval reported that his Abdomen is soft and he has active bowel sounds in all quadrants. He does not have cramping since Tuesday.
--- NOTE | 2019-11-07 16:47 | NUR ---
Cut Off Saw Set Up Operator left a message for patient's daughter, Shabnam and also emailed her copy of team conference notes per her request. SW will provide copy of team conference notes to patient tomorrow as he is in dialysis this afternoon.
--- NOTE | 2019-11-07 16:51 | NUR ---
Patient just arrived via bed to room 340.
[2019-11-07 17:36] VITALS: BP 150/65; PULSE 72; TEMP 98.1
--- NOTE | 2019-11-07 17:51 | NUR ---
NOTE: Patient was taken off MRSA precautions today per report from AUSTEN Bradford at [facility].
--- NOTE | 2019-11-07 19:30 | NUR ---
PATIENT RESTING IN BED DURING CHANGE OF SHIFT REPORT FROM DAY SHIFT NURSEJENNI. OXYGEN CONTINUES PER CA. BED ALARM ON. CARDOZA CONTINUES. DENIES ANY NEEDS DURING REPORT.
[2019-11-07 23:59] VITALS: BP 154/83; PULSE 54; TEMP 98.7
--- NOTE | 2019-11-08 01:30 | NUR ---
PATIENT SLEEPING, DOES NOT AWAKEN WHEN ROOM ENTERED BY STAFF. OBSERVED BREATHING NONLABORED AND EVEN, CPAP W/OX CONTINUES WITHOUT INCIDENT. CARDOZA CATHETER DRAINING WITHOUT PROBLEMS. BED ALARM ON.
[2019-11-08 05:57] VITALS: BP 168/77; PULSE 66; TEMP 97.9
[2019-11-08 06:07] LABS: BASO % 0.2 % (0.0-2.0); EOS # 0.3 (0.0-0.7); GRAN # 6.1 (1.4-6.5); LYMPH # 1.3 (1.2-3.4); LYMPH % 14.3 % (20.0-51.0); MEAN CELL VOLUME 96 fl (80.0-100.0); MEAN CORPUSCULAR HGB CONC 31 g/dl (33.0-37.0); MEAN PLATELET VOLUME 11.1 fl (7.4-10.4); MONO # 1.1 (0.1-0.6); MONO % 11.7 % (1.7-9.3); PLATELET COUNT 174 K/mm3 (130-400); RED BLOOD COUNT 2.45 M/mm3 (4.20-5.60); REDCELL DISTRIBUTION WIDTH-CV 14.4 % (11.5-14.5)
[2019-11-08 06:13] LABS: HEMATOCRIT 23.4 % (42.0-52.0); HEMOGLOBIN 7.2 g/dl (13.5-18.0); MEAN CORPUSCULAR HEMOGLOBIN 29 pg (27.0-31.0)
--- NOTE | 2019-11-08 07:12 | NUR ---
PATIENT RESTING IN BED DURING CHANGE OF SHIFT REPORT GIVEN TO DAY SHIFT NURSESHABBIR. BED ALARM ON, PATIENT WITH NO COMPLAINTS DURING REPORT. CARDOZA CATH DRAINING WITHOUT PROBLEMS, OXYGEN CHANGED FROM CPAP TO NC.
--- NOTE | 2019-11-08 14:51 | NUR ---
Residential Door Unit Installer met with patient to review and provide copy of team conference notes. SW advised that she left a message yesterday for Shabnam. SW also advised that the team would reevaluate next week to set discharge date. SW to continue to follow.
[2019-11-08 17:49] VITALS: BP 156/77; PULSE 75; TEMP 99.1
--- NOTE | 2019-11-08 20:00 | NUR ---
At time of assessment, patient is awake in bed watching TV. He is alert and oriented, heart sounds normal/regular, lung sounds clear/diminished. No edema is present in lower extremities. He complains of itchiness on his R side of abdomen, where a large bruise is present from the fall he had here on Tuesday. Barrier cream is provided to soothe itching. He still complains of some numbness in his R thigh from the fall. He does not complain of any pain. Will continue to monitor.
--- NOTE | 2019-11-09 05:55 | NUR ---
Patient has had an uneventful night. He has been on his home CPAP and has slept throughout the night. He has complained of some itching/irritation on his right side where he had his fall on Tuesday. Will continue to monitor.
[2019-11-09 06:03] VITALS: BP 171/91; PULSE 68; TEMP 98.1
[2019-11-09 06:34] LABS: MEAN CELL VOLUME 95 fl (80.0-100.0); MEAN CORPUSCULAR HGB CONC 31 g/dl (33.0-37.0); MEAN PLATELET VOLUME 10.8 fl (7.4-10.4); PLATELET COUNT 218 K/mm3 (130-400); RED BLOOD COUNT 2.37 M/mm3 (4.20-5.60); REDCELL DISTRIBUTION WIDTH-CV 14.4 % (11.5-14.5)
[2019-11-09 06:46] LABS: HEMATOCRIT 22.6 % (42.0-52.0); MEAN CORPUSCULAR HEMOGLOBIN 30 pg (27.0-31.0)
[2019-11-09 06:47] LABS: ALBUMIN 2.8 gm/dL (3.5-5.0); CALCIUM 8.7 mg/dL (8.4-10.2); CREATININE, serum 3.31 (0.66-1.25); PHOSPHOROUS 4.5 mg/dL (2.5-4.5); POTASSIUM 4.4 mmol/L (3.4-5.0)
--- NOTE | 2019-11-09 08:05 | NUR ---
PT AOX4. denies pain. working with therapy at this time. denies SOB. calls for assistance. pleasant mood. on 3L NC
[2019-11-09 08:11] LABS: BAND 1 % (0-10); EOSINOPHIL 2 % (0-4); LYMPHOCYTE 10 % (20.0-51.0); METAMYELOCYTE 1 % (0-0); MYELOCYTE 1 % (0-0); NEUTROPHILS 79 % (42.0-75.2); NUCLEATED RED BLOOD CELL 1 (0-6); PLATELET ESTIMATE NORMAL (NORMAL)
[2019-11-09 10:02] VITALS: BP 153/78; PULSE 70
--- NOTE | 2019-11-09 15:35 | NUR ---
Bioinformatics Developer followed up with patient's daughter, Shabnam before the weekend. Shabnam denies any questions or concerns going into the weekend. SW attempted to follow up with patient who is in dialysis. Patient was sleeping and there was a second patient also in the room for dialysis. SW will follow up with patient on Tuesday.
[2019-11-09 18:40] VITALS: BP 152/79; PULSE 74; TEMP 98.9
--- NOTE | 2019-11-09 20:00 | NUR ---
SHIFT REPORT FROM BRIANA Mendoza RN. EARLIER. SEE ASSESSMENT.
--- NOTE | 2019-11-09 21:00 | NUR ---
PT RESTING IN BED. FATIGUED/DEPRESSED AFFECT. O2 3L NC. NO RESP DISTRESS. CONTINUED FR ORDERED. SEE ASSESSMENT REGARDING RT FLANK. HAVING RT KNEE PAIN- SHARP INTERMITTENT DISCOMFORT. CHARCOT RT FOOT NOTED. F/C DRAINING WITH PALE YELLOW SL HAZY URINE RETURN. ACCOUNTS RECEIVABLE SPECIALIST DID CATH CARE. DIAPER CHANGED AT THIS TIME. PILLOW PLACED UNDER RT KNEE. SEE MAR FOR TYLENOL GIVEN. DECLINED ICE PACK. CALL LIGHT IN REACH. BED ALARM SET.
--- NOTE | 2019-11-09 23:00 | NUR ---
PT PLACED ON CPAP WITH O2 3L BLED IN.
--- NOTE | 2019-11-10 01:05 | NUR ---
NOTIFIED LAURE OLIVERA CLARIFY ORDER FOR NANI. NEW ORDERS NOTED.
--- NOTE | 2019-11-10 02:05 | NUR ---
UA OBTAINED VIA CARDOZA. CARDOZA DC'D AT THIS TIME. BILAT WRIST INT NEEDLES DC'D OSCAR WERE OUTDATED.
--- NOTE | 2019-11-10 02:15 | NUR ---
NOTED LAST BM DOCUMENTED ON 11/05 BEING HARD. GAVE SENOKOT BUT PT WOULD ONLY TAKE 1 TAB.
[2019-11-10 02:21] LABS: COLLECTION METHOD CATHETER
[2019-11-10 02:31] LABS: MUCOUS Present /lpf; PH 7 (5-8); SQUAMOUS EPITHELIAL None Seen /hpf; URINE APPEARANCE Cloudy; URINE BACTERIA Occasional /hpf; URINE BILIRUBIN Negative (NEGATIVE); URINE BLOOD 1+ (NEGATIVE); URINE COLOR Yellow; URINE GLUCOSE Negative (NEGATIVE); URINE KETONE Negative (NEGATIVE); URINE LEUKOCYTE ESTERASE 3+ (NEGATIVE); URINE NITRATE Negative (NEGATIVE); URINE PROTEIN(semi-quant) 2+ (NEGATIVE); URINE RBC 20-50 /hpf; URINE UROBILINOGEN Negative (NEGATIVE)
--- NOTE | 2019-11-10 03:11 | NUR ---
DR LAWSON NOTIFIED OF UA RESULT. WILL PUT IN NEW ORDER.
--- NOTE | 2019-11-10 04:12 | NUR ---
STARTED OMNICEF AT THIS TIME FOR UTI.
[2019-11-10 05:18] VITALS: BP 165/84; PULSE 69; TEMP 98
--- NOTE | 2019-11-10 06:16 | NUR ---
PT RESTING NOW. HAS WORE HIS CPAP ALL NIGHT W/ O2. HAS NOT VOIDED YET SINCE NANI WHITE'Delfino AT 0200. DENIED AT 0530 NEED TO VOID.
[2019-11-10 07:16] LABS: MEAN CELL VOLUME 97 fl (80.0-100.0); MEAN CORPUSCULAR HGB CONC 31 g/dl (33.0-37.0); MEAN PLATELET VOLUME 11.2 fl (7.4-10.4); PLATELET COUNT 218 K/mm3 (130-400); RED BLOOD COUNT 2.45 M/mm3 (4.20-5.60); REDCELL DISTRIBUTION WIDTH-CV 14.3 % (11.5-14.5)
[2019-11-10 07:22] LABS: HEMATOCRIT 23.7 % (42.0-52.0); HEMOGLOBIN 7.3 g/dl (13.5-18.0); MEAN CORPUSCULAR HEMOGLOBIN 30 pg (27.0-31.0)
--- NOTE | 2019-11-10 07:25 | NUR ---
NANI WHITE'D @ 0200 PER VISUAL MERCHANDISING DIRECTOR REPORT. PT STTAED MILD URGE TO VOID WHEN ASKED @ 0700. VOIDED 180MLS OF WHITE SEDIMENTED YELLOW URINE. POST VOID RESIDUAL PERFORMED WITH MAX VALUE OF 58MLS. PT STATES PAIN 4/10 TO RT FLANK HEMATOMA AREA, REQUESTED TYLENOL. ON NC.
[2019-11-10 11:17] LABS: BAND 2 % (0-10); LYMPHOCYTE 10 % (20.0-51.0); NEUTROPHILS 83 % (42.0-75.2); PLATELET ESTIMATE NORMAL (NORMAL)
[2019-11-10 17:38] VITALS: BP 119/67; PULSE 76; TEMP 99.6
--- NOTE | 2019-11-10 20:20 | NUR ---
PT IN BED WITH HOB ELEVATED TO 45 DEGREE ANGLE, DENIES PAIN OR DISCOMFORT AND NO NEEDS AT THIS TIME, CALL LIGHT WITHIN REACH.
--- NOTE | 2019-11-11 04:51 | NUR ---
PT IN BED WITH HOB ELEVATED TO 45 DEGREE ANGLE. PT HAS BEEN AWAKE HALF THE NIGHT. PT CALLED A COUPLE OF TIMES TO GET ASSISTANCE WITH THE URINAL, BUT PT IS NOW SLEEPING WITH NO S/S OF PAIN OR DISCOMFORT, AND RESP EVEN AND UNLABORED, CPAP ON WITH O2 AT 2L. CALL LIGHT WITHIN REACH AND BED ALARM ON.
[2019-11-11 06:24] VITALS: BP 183/84; PULSE 69; TEMP 98.1
[2019-11-11 07:26] LABS: MEAN CELL VOLUME 95 fl (80.0-100.0); MEAN CORPUSCULAR HGB CONC 31 g/dl (33.0-37.0); MEAN PLATELET VOLUME 10.7 fl (7.4-10.4); PLATELET COUNT 228 K/mm3 (130-400); RED BLOOD COUNT 2.63 M/mm3 (4.20-5.60); REDCELL DISTRIBUTION WIDTH-CV 14.5 % (11.5-14.5)
[2019-11-11 07:38] LABS: HEMATOCRIT 25.1 % (42.0-52.0); HEMOGLOBIN 7.7 g/dl (13.5-18.0); MEAN CORPUSCULAR HEMOGLOBIN 29 pg (27.0-31.0)
[2019-11-11 09:57] LABS: BAND 4 % (0-10); EOSINOPHIL 2 % (0-4); LYMPHOCYTE 18 % (20.0-51.0); NEUTROPHILS 74 % (42.0-75.2); PLATELET ESTIMATE NORMAL (NORMAL)
[2019-11-11 16:00] VITALS: BP 147/75; PULSE 70; TEMP 98.1
--- NOTE | 2019-11-11 18:00 | NUR ---
Patient did well today. He sat up in the chair most the day. No complaints of pain or nausea. He is not able to move his right leg well or put full weight on it. He had a large bowel movement this morning. His stool was hard, stool softner given. No other changes at this time. Call light within reach.
--- NOTE | 2019-11-11 19:33 | NUR ---
PATIENT UP IN CHAIR DURING CHANGE OF SHIFT REPORT FROM DAY SHIFT NURSEDELROY. CHAIR ALARM ON.
--- NOTE | 2019-11-12 00:19 | NUR ---
PATIENT SLEEPING, DOES NOT AWAKEN WHEN DOOR TO ROOM IS OPENED BY STAFF. OBSERVED BREATHING NONLABORED AND EVEN. BED ALARM ON.
--- NOTE | 2019-11-12 04:00 | NUR ---
PATIENT SLEEPING, DOES NOT AWAKEN WHEN ROOM ENTERED BY STAFF, OBSERVED BREATHING NONLABORED AND EVEN WITH CPAP IN PLACE. BED ALARM ON.
[2019-11-12 06:37] VITALS: BP 156/91; PULSE 71; TEMP 98.1
--- NOTE | 2019-11-12 07:30 | NUR ---
PATIENT UP IN CHAIR DURING CHANGE OF SHIFT REPORT GIVEN TO DAY SHIFT NURSEELENA. CHAIR ALARM ON, OXYGEN CONTINUES PER NC AT 2L.
--- NOTE | 2019-11-12 08:00 | NUR ---
PT CONTINENT OF BM. LARGE AMOUNT OF DARK TARRY STOOLS PRESENT. STOOL WAS SOFT. PT UNABLE TO WIPE HIMSELF, LIFT USED TO MOVE HIM, PT ABLE TO SWALLOW PILLS WHOLE WITH WATER, NAY AREA NOT IRRITATED OR REDDENED. PT STATING PAIN 3/10 IN R KNEE. PT STILL REPORTS NOT BEING ABLE TO PUT WEIGHT ON R LEG DUE TO NUMBNESS. NO OTHER NEEDS AT THIS TIME.
[2019-11-12 11:52] LABS: MEAN CELL VOLUME 95 fl (80.0-100.0); MEAN CORPUSCULAR HGB CONC 32 g/dl (33.0-37.0); MEAN PLATELET VOLUME 10.3 fl (7.4-10.4); PLATELET COUNT 237 K/mm3 (130-400); RED BLOOD COUNT 2.61 M/mm3 (4.20-5.60); REDCELL DISTRIBUTION WIDTH-CV 14.2 % (11.5-14.5)
[2019-11-12 11:56] LABS: HEMATOCRIT 24.7 % (42.0-52.0); HEMOGLOBIN 7.8 g/dl (13.5-18.0); MEAN CORPUSCULAR HEMOGLOBIN 30 pg (27.0-31.0)
[2019-11-12 12:03] LABS: CALCIUM 8.9 mg/dL (8.4-10.2); CREATININE, serum 4.33 (0.66-1.25); POTASSIUM 4.1 mmol/L (3.4-5.0)
[2019-11-12 12:06] LABS: INR 1.1 (0.8-3.0); PROTHROMBIN TIME 12.6 SECONDS (9.7-12.8)
[2019-11-12 12:35] LABS: BAND 2 % (0-10); EOSINOPHIL 1 % (0-4); LYMPHOCYTE 16 % (20.0-51.0); NEUTROPHILS 76 % (42.0-75.2); PLATELET ESTIMATE NORMAL (NORMAL)
--- NOTE | 2019-11-12 12:44 | NUR ---
CONSENT SIGNED FOR LEFT BRACHIOCEPHALIC ARTERIOVENOUS FISTULA
--- NOTE | 2019-11-12 13:35 | NUR ---
PT TRANSFERRED TO DIALYSIS VIA WHEELCHAIR UTILIZING [id number] MACHINE. WHEELCHAIR THEN WEIGHED TO FIGURE OUT DAILY WEIGHT OF 112.9KG.
--- NOTE | 2019-11-12 13:40 | NUR ---
PT REPORTED ITCHING AT DIALYSIS CATH SITE AND REPORTED HE HAD BEEN RUBBING IT DURING THE DAY . NIGEL RN, CHANGED DRESSING AND NOTED SOME DRAINAGE. SHE REPORTED NO REDNESS OR SWELLING. PT HAS BEEN AFEBRILE. WILL CONTINUE TO MONITIOR.
--- NOTE | 2019-11-12 14:21 | NUR ---
Rn Surgical Pcu followed up with the patient from the weekend. Patient does not have any questions at this time but did indicate that he is ready to be discharged. SW to continue to follow.
[2019-11-12 16:56] VITALS: BP 134/72; PULSE 74; TEMP 98.5
--- NOTE | 2019-11-12 16:58 | NUR ---
PT RETURNED FROM DIALYSIS, 2,000ML TAKEN OFF, PT REPORTING KNEE PAIN 2/10.
--- NOTE | 2019-11-12 17:12 | NUR ---
CONSENT SIGNED FOR FISTULA PLACEMENT TOMORROW, PT REPORTING PAIN 2/10 IN KNEE AND TENDERNESS IN ABDOMEN UPON PALPATION. PT UTILIZING SIT TO STAND MACHING FOR TRANSFERS, PT ABLE TO FEED HIMSELF, PT UNABLE TO HOLD URINAL IN CORRECT POSITION FOR URINATION. PT EATING MAJORITY OF MEALS. PT REQUIRES ASSISTANCE PUTTING ON PANTS AND BRIEFS. PT CONTINENT OF URINE AND STOOLS DURING SHIFT. PT REMAINS AFEBRILE. DIALYSIS CATHETER ITCHING REPORTED TO DIALYSIS NURSE WHO CHANGED DRESSING AND NOTICED SCANT DRAINAGE. NO OTHER NEEDS AT THIS TIME.
--- NOTE | 2019-11-12 18:50 | NUR ---
PT INCONTINENT OF URINE AND BOWEL. SMALL DARK TARRY SOFT FORM STOOL PRODUCED. NAY CARE PROVIDED AND BRIEF CHANGED, PANTS PLACED IN PT LAUNDRY. PT TRANSFERRED TO BED VIA SIT TO STAND MACHINE AND HE WAS COVERED UP REQUESTED.
--- NOTE | 2019-11-12 19:00 | NUR ---
PT REPORT RECEIVED FROM ELENA BOYCE AT BEDSIDE. PT IS A&OX4, IS ABLE TO USE THE CALL LIGHT, WHICH IS AT PT BEDSIDE, AND MAKE HIS WANTS/NEEDS KNOWN. PT IS NOTED TO HAVE MALE URINAL AT THE BASE OF THE BED AND STATES THAT HE USES THE URINAL FOR VOIDING BUT REQUIRES ASSISTANCE TO NOT SPILL OR DRIBBLE URINE WHILE USING THE URINAL. NO S/S OF DISTRESS NOTED. WILL CONTINUE TO MONITOR.
--- NOTE | 2019-11-12 23:03 | NUR ---
PT HAS BEEN RESTING IN BED WATCHING TV DURING THE SHIFT SO FAR. PT ALERTED THIS PLANT CARE WORKER THAT HE WAS NEEDING TO USE THE URINAL TO VOID AND THIS PLANT CARE WORKER ASSISTED PT IN DOING SO AND RECORDED PT URINE OUTPUT WITH CLEAR YELLOW URINE NOTED. PT REQUESTED PRN APAP JUST PRIOR TO HS MED PASS. PT REQUESTED RT BE NOTIFIED THAT HE WAS READY TO GO TO SLEEP SO THAT HE COULD GET HIS CPAP PUT ON AND THIS PLANT CARE WORKER NOTIFIED RT PRIOR TO THE CHARTING OF THIS NOTE AND THIS PLANT CARE WORKER NOTED THAT RT JUST LEFT THE ROOM AFTER COMPLETING THE TASK. PT IS COOPERATIVE WITH CARE AND COMPLIANT WITH MEDICATION REGIMEN. PT IS SCHEDULED FOR THE PLACEMENT OF HIS A-V FISTULA FOR DIALYSIS IN THE AM AND STATES THAT HE HAS NOT BEEN NOTIFIED IF HE IS TO BE NPO OR NOT. THIS PLANT CARE WORKER EDUCATED PT THAT NOT ALL PROCEDURES REQUIRE NPO BUT THAT THIS PLANT CARE WORKER WILL REVIEW ORDERS AND CONTACT PROVIDER TO VERIFY NPO STATUS IF NO NOTATION FOUND. PT STATES UNDERSTANDING. PT HAS HAD NO DISTRESS NOTED DURING THE SHIFT AND CONTINUES TO REST PEACEFULLY IN BED AT THIS TIME WITH CALL LIGHT WITHIN REACH AND BEDSIDE TABLE AT HIS SIDE WITH BEVERAGE AND PERSONAL ITEMS WITHIN REACH. WILL CONTINUE TO MONITOR.
[2019-11-13] VITALS (20 sets, daily range): BP systolic 82–159; BP diastolic 49–84; PULSE 64–74; TEMP 97.7–99.1
--- NOTE | 2019-11-13 00:34 | NUR ---
PT REQUESTED ASSISTANCE TO USE THE MALE URINAL AND THEN SIT ON THE SIDE OF THE BED TO REPOSITION DUE TO SOME MILD PAIN/DISCOMFORT TO HIS RLE. PT REQUIRES ASSISTANCE TO COME TO A SITTING POSITION AND THEN WHEN THIS ADHESIVE SPRAYER LETS GO OF PT HAND HE IMMEDIATELY FALLS BACKWARDS ONTO THE BED WITH THIS ADHESIVE SPRAYER HELPING TO STABILIZE HIM BACK TO A FULLY UPRIGHT POSITION. PT HAS QUESTIONS ABOUT THE A-V FISTULA GRAFT SCHEDULED TOMORROW AND THIS ADHESIVE SPRAYER PROVIDES EDUCATION ON HOW THE SURGEON IS GOING TO MAKE A CONNECTION BETWEEN HIS ARTERY AND A VEIN IN HIS LOWER OR UPPER ARM TO ALLOW THE BLOOD TO FLOW FASTER AT THAT SITE AND PROVIDE A PERMANENT ACCESS POINT FOR DIALYSIS. PT STATES UNDERSTANDING.
--- NOTE | 2019-11-13 00:49 | NUR ---
PT GUAZE DRESSING OVER DIALYSIS CATHETER SITE IS NOTED CLEAN, DRY, AND INTACT WITH NO DRAINAGE NOTED. WILL CONTINUE TO MONITOR.
--- NOTE | 2019-11-13 03:22 | NUR ---
ALL BEVERAGE GLASSES, FOOD, AND LIQUIDS REMOVED FROM PT ROOM DUE TO NPO AT 0300 FOR 1445 AV FISTULA PLACEMENT. PT RESTING PEACEFULLY IN BED WITH NO S/S OF DISTRESS NOTED. CALL LIGHT IS AT PT SIDE. WILL CONTINUE TO MONITOR.
--- NOTE | 2019-11-13 05:40 | NUR ---
PT NOTIFIED STAFF THAT HE NEEDED TO VOID. PT ASSISTED WITH MALE URINAL AND THIS PAINT BRUSH MAKER NOTED THAT HIS BRIEF WAS ALSO WET. BRIEF CHANGED AND NAY-CARE PROVIDED. CALL LIGHT IS WITHIN REACH. PT HAS HAD A QUIET AND PEACEFULL NIGHT AND REMAINS IN STABLE CONDITION AT THIS TIME. WILL CONTINUE TO MONITOR.
--- NOTE | 2019-11-13 06:28 | NUR ---
PT HAS HAD A PEACEFULL NIGHT AND AFTER HAVING A SNACK RETURNED TO BED AND APPEARED TO BE SLEEPING PEACEFULLY WITH CPAP ON AND NO S/S OF DISTRESS NOTED THROUGHOUT THE SHIFT. PT WOKE UP WHEN THIS POLICE JUDGE ENTERED ROOM AND BEGAN MOVING AROUND IN PREPARATION FOR VS ASSESSMENT. PT REMAINS NPO AT THIS TIME FOR PROCEDURE SCHEDULED AT 1445. CALL LIGHT IS WITHIN REACH. WILL CONTINUE TO MONITOR.
--- NOTE | 2019-11-13 11:09 | NUR ---
Assessment complete. Patient A&Ox3. VSS. IV CDI. Dialysis catheter CDI. Patient sitting in wheelchair after working with PT. Patient is NPO for a procedure today. Fall precautions in place. No further needs expressed from patient. Call light within reach
[2019-11-13 11:20] LABS: MEAN CELL VOLUME 95 fl (80.0-100.0); MEAN CORPUSCULAR HGB CONC 31 g/dl (33.0-37.0); MEAN PLATELET VOLUME 10.3 fl (7.4-10.4); PLATELET COUNT 263 K/mm3 (130-400); RED BLOOD COUNT 2.75 M/mm3 (4.20-5.60); REDCELL DISTRIBUTION WIDTH-CV 14.3 % (11.5-14.5)
[2019-11-13 11:21] LABS: HEMATOCRIT 26.1 % (42.0-52.0); HEMOGLOBIN 8.2 g/dl (13.5-18.0); MEAN CORPUSCULAR HEMOGLOBIN 30 pg (27.0-31.0)
[2019-11-13 11:26] LABS: ALBUMIN 3.1 gm/dL (3.5-5.0); BILIRUBIN,TOTAL 0.9 mg/dL (0.0-1.0); CREATININE, serum 3.26 (0.66-1.25); POTASSIUM 4.5 mmol/L (3.4-5.0); TOTAL PROTEIN 6.5 gm/dL (6.4-8.2)
[2019-11-13 12:00] LABS: BAND 1 % (0-10); EOSINOPHIL 2 % (0-4); LYMPHOCYTE 6 % (20.0-51.0); METAMYELOCYTE 1 % (0-0); NEUTROPHILS 83 % (42.0-75.2); PLATELET ESTIMATE NORMAL (NORMAL)
--- NOTE | 2019-11-13 15:15 | NUR ---
Patient taken to procedure in bed. No further needs expressed from patient.
--- NOTE | 2019-11-13 18:34 | NUR ---
PATIENT RECEIVED FROM PACU PER HOSP BED, PATIENT DROWSY, AROUSES TO NAME CALLED. REPORTS HAS PAIN "IN MY ASS". O2 ON PER NC AT 4LPM PER PACU NURSE. RESP NONLABORED AND EVEN. AV FISTULA SURGICAL SITE KACI, INCISION CLEAR.
--- NOTE | 2019-11-13 19:30 | NUR ---
IV BOLUS STARTED OF 250 ML NS TO RUN OVER 1 HOUR AND RECHECK BP.
--- NOTE | 2019-11-13 20:33 | NUR ---
IV BOLUS OF NS ENDED AND POST OP IV FLUIDS RUNNING AT 50ML/HOUR. PATIENT AWAKEN, ATE SOLID FOOD LATE SUPPER TRAY WITH NO PROBLEMS. REPORT SLIGHT NAUSEA, DENIES URGE OF VOID CURRENTLY. PATIENT STATES HE IS TIRED.
--- NOTE | 2019-11-13 22:55 | NUR ---
CALLED DR LAWSON FOR BP MED CLARIFICATION DUE TO LAST VS RESULTS OF BP 11O'S/60 WITH ORDERS GIVEN TO HOLD BP MEDS (ZEBETA, LISINOPRIL, LASIX) AND IV NARCOTICS UNTIL PATIENT IS REEVALUATED TOMORROW BY DR AGUAYO. BED ALARM ON.
[2019-11-14] VITALS: BP 116/63; PULSE 68
[2019-11-14 01:00] VITALS: BP 126/68; PULSE 68
--- NOTE | 2019-11-14 01:00 | NUR ---
PATIENT SLEEPING, CPAP ON WITH O2 BLED IN, DOES NOT AWAKEN WHEN ROOM ENTERED BY STAFF. BED ALARM ON.
[2019-11-14 04:36] VITALS: BP 130/70; PULSE 69; TEMP 98.9
--- NOTE | 2019-11-14 07:30 | NUR ---
PATIENT RESTING IN BED DURING CHANGE OF SHIFT REPORT GIVEN TO DAY SHIFT NURSEIGNACIO. BED ALARM ON.
[2019-11-14 13:17] LABS: MEAN CELL VOLUME 95 fl (80.0-100.0); MEAN CORPUSCULAR HGB CONC 31 g/dl (33.0-37.0); MEAN PLATELET VOLUME 10.5 fl (7.4-10.4); PLATELET COUNT 251 K/mm3 (130-400); RED BLOOD COUNT 2.63 M/mm3 (4.20-5.60); REDCELL DISTRIBUTION WIDTH-CV 14.3 % (11.5-14.5)
[2019-11-14 13:20] LABS: CREATININE, serum 4.08 (0.66-1.25); PHOSPHOROUS 5.5 mg/dL (2.5-4.5); POTASSIUM 4.4 mmol/L (3.4-5.0)
[2019-11-14 13:41] LABS: HEMATOCRIT 24.9 % (42.0-52.0); HEMOGLOBIN 7.6 g/dl (13.5-18.0); MEAN CORPUSCULAR HEMOGLOBIN 29 pg (27.0-31.0)
[2019-11-14 14:15] LABS: BAND 1 % (0-10); EOSINOPHIL 1 % (0-4); LYMPHOCYTE 14 % (20.0-51.0); METAMYELOCYTE 1 % (0-0); NEUTROPHILS 81 % (42.0-75.2)
[2019-11-14 14:16] LABS: ANISOCYTOSIS 1+; HYPOCHROMIA 1+; PLATELET ESTIMATE NORMAL (NORMAL)
--- NOTE | 2019-11-14 16:42 | NUR ---
[employer] Membership Advisors met with patient to review team conference notes and provide copy. SW reviewed recommendation for SNF and patient understands why this is being recommended. Patient is agreeable to referrals being sent to the three SNFs here in [place]: [facility], [facility], and [facility]. SW contacted Shabnam to review SNF recommendation. Shabnam agrees with recommendation but states patient will be disappointed. SW to continue to follow.
--- NOTE | 2019-11-14 17:24 | NUR ---
Patient is alert, right knee pain at 4/10. Administered norco *1, patient confirm relieve 1 hr after. 2,000mL fluid removed during dialysis. pt tolerate sit to stand assist lift transfer well. one episode of urine urgency incontinence. 1 small BM in the eveving.
[2019-11-14 17:41] VITALS: BP 131/66; PULSE 73; TEMP 97.7
--- NOTE | 2019-11-15 05:51 | NUR ---
PATIENT HAS RESTED THROUGH THE NIGHT WITH HIS HOME CPAP ON. NO COMPLAINTS NOTED. WILL REPORT OFF TO DAY SHIFT UPON THEIR ARRIVAL
[2019-11-15 06:09] VITALS: BP 148/79; PULSE 67; TEMP 98.3
--- NOTE | 2019-11-15 10:13 | NUR ---
Environmental Studies Department Chair contacted Tobias, [facility], and [facility] and faxed referrals. SW to continue to follow.
[2019-11-15] MEDS ORDERED: FERROUS SU325 MG/TAB PO (14:33)
[2019-11-15] MEDS ORDERED: NORCO 325 MG-51 TAB PO (14:34)
[2019-11-15] MEDS ORDERED: PRINIVIL2.5 MG PO (14:34)
[2019-11-15] MEDS ORDERED: TYLENOL 325MG325 MG PO (14:34)
[2019-11-15] MEDS ORDERED: LASIX 80MG TABL80 MG PO (14:36)
[2019-11-15] MEDS ORDERED: COLACE 100100 MG/CAP PO (14:37)
[2019-11-15] MEDS ORDERED: MIRALAX PA17 GM/Dose PO (14:37)
[2019-11-15] MEDS ORDERED: NOVOLOG 100U100 U/M1 SQ (14:40)
--- NOTE | 2019-11-15 16:27 | NUR ---
Buckle Wire Inserter spoke with Margret at [facility] who advised they would likely be able to accept if patient had a negative COVID test. NATASHA spoke with Roxann, [facility] Director who consulted Hospitalist. Test ordered. NATASHA provided update to Margret at [facility]. NATASHA spoke with Duran at [facility] and Buck at [facility] who are still screening referral. NATASHA spoke with patient about preference and patient states he is not sure. Patient would like SW to contact patient's daughter. SW contacted Shabnam and left a message. SW to continue to follow.
[2019-11-15 18:00] VITALS: BP 136/70; PULSE 70; TEMP 98.4
--- NOTE | 2019-11-15 21:00 | NUR ---
Received report from AUSTEN Logan. Alert and oriented. Denies any pain or discomfort at this time. Meds administered as ordered. HD cath to RT upper chest intact, dressing CDI. INT to RFA intact, flushed, dressing CDI. Pt wearing CPAP HS. Needs met at this time. Call light within reach.
[2019-11-16 05:31] VITALS: BP 162/79; PULSE 72; TEMP 97.6
--- NOTE | 2019-11-16 07:41 | NUR ---
PT AT REST IN BED ON RA. SPO2 86%. O2 BACK ON AT 2 LPM SPO2 96%
--- NOTE | 2019-11-16 09:11 | NUR ---
Buck, at [facility], reports that they are able to accept the patient. SW to inform the patient and daughter and will continue to follow.
[2019-11-16 13:41] LABS: MEAN CELL VOLUME 94 fl (80.0-100.0); MEAN CORPUSCULAR HGB CONC 31 g/dl (33.0-37.0); PLATELET COUNT 260 K/mm3 (130-400); RED BLOOD COUNT 2.72 M/mm3 (4.20-5.60); REDCELL DISTRIBUTION WIDTH-CV 14.4 % (11.5-14.5)
--- NOTE | 2019-11-16 13:51 | NUR ---
The patient's daughter, Shabnam, contacted NATASHA that she has spoken to the rest of her family and that they really prefer [facility]. NATASHA informed Shabnam how we are just awaiting COVID results and that tentative discharge would then be tomorrow or Tuesday. Shabnam verbalized understanding and was agreeable to this. NATASHA notified and faxed updates to Margret at [facility]. NATASHA updated Buck at [facility]. NATASHA to continue to follow.
[2019-11-16 13:57] LABS: ALBUMIN 2.9 gm/dL (3.5-5.0); CALCIUM 8.6 mg/dL (8.4-10.2); CREATININE, serum 3.92 (0.66-1.25); HEMATOCRIT 25.6 % (42.0-52.0); MEAN CORPUSCULAR HEMOGLOBIN 29 pg (27.0-31.0); PHOSPHOROUS 5.5 mg/dL (2.5-4.5); POTASSIUM 4.5 mmol/L (3.4-5.0)
[2019-11-16 14:24] LABS: BAND 1 % (0-10); EOSINOPHIL 1 % (0-4); LYMPHOCYTE 15 % (20.0-51.0); MYELOCYTE 1 % (0-0); NEUTROPHILS 76 % (42.0-75.2)
[2019-11-16 14:25] LABS: HYPOCHROMIA 1+; PLATELET ESTIMATE NORMAL (NORMAL)
--- NOTE | 2019-11-16 14:49 | NUR ---
Patient currently at dialysis. Lexi KAUR reported that patient's family chose for him to wait and go to [facility] SNF so patient will be discharging later this week or beginning of next week.
[2019-11-16 17:20] VITALS: BP 126/46; PULSE 73; TEMP 98.2
--- NOTE | 2019-11-16 20:25 | NUR ---
Patient currently resting in bed at this time. Call light in reach, bed alarm set and denies any questions. Patient returned from dialysis this afternoon and they took off 2000 ml today. Patient was transferred with sit to stand from bed to wheelchair, then wheelchair to dialysis chair and then back to his wheelchair. Patient was continent of urine this afternoon.
--- NOTE | 2019-11-16 20:59 | NUR ---
PT IS A&OX4, ABLE TO MAKE WANTS/NEEDS KNOWS, IS COOPERATIVE WITH CARE AND CALL LIGHT SYSTEM, USES MALE URINAL TO VOID, AND IS CURRENTLY RESTING IN BED PEACEFULLY WATCHING TV. PT HAS A NEW A-V FISTULA PLACED ON HIS LEFT UPPER ARM THAT SHOWS NO S/S OF INFECTION OR DEHISCENCSE. PT HAS CALL LIGHT AT HIS SIDE AND DENIES PAIN, WANTS/NEEDS AT THIS TIME. PT PRESENTS WITH NO S/S OF DISTRESS NOTED. DURING CHART/ORDER REVIEW THIS OPHTHALMIC MEDICAL TECHNOLOGIST NOTED THAT PT IS NOW ON CONTACT AND DROPLET PRECAUTIONS WHEREASE WHEN THIS OPHTHALMIC MEDICAL TECHNOLOGIST PROVIDED CARE TO THIS PT ON 11/12/2019 ON THE 79-7A SHIFT THERE WERE NO PRECAUTIONS NOTED. UPON REVIEW THIS OPHTHALMIC MEDICAL TECHNOLOGIST SEES THAT PT HAD A POSITIVE NARES TEST FOR MRSA ABOUT A MONTH AGO BUT CANNOT FIND REFERENCE TO THE REASONS BEHINS THE DROPLET PRECAUTIONS. THIS OPHTHALMIC MEDICAL TECHNOLOGIST WILL DISCUSS THESE PRECAUTIONS WITH CHARGE NURSE. WILL CONTINUE TO MONITOR.
--- NOTE | 2019-11-17 01:03 | NUR ---
PT IS RESTING PEACEFULLY IN BED WITH EYES CLOSED AND NO S/S OF PAIN OR DISTRESS NOTED. CALL LIGHT REMAINS AT PT SIDE. WILL CONTINUE TO MONITOR.
--- NOTE | 2019-11-17 03:23 | NUR ---
Pt HAS HAD A QUIET AND PEACEFUL NIGHT SO FAR THIS SHIFT AND HAS NOT NEEDED ANY PAIN INTERVENTIONS. Pt REMAINS IN STABLE CONDITION. ABOUT AN HOUR AGO Pt USED CALL LIGHT TO NOTIFY THIS SPECIAL DELIVERY CARRIER THAT THE O2 TUBING HAD COME OFF HIS CPAP. 02 TUBING RECONNECTED AND Pt RETURNED TO RESTING IN BED PEACEFULLY SINCE THEN. CALL LIGHT IS AT Pt SIDE. WILL CONTINUE TO MONITOR.
--- NOTE | 2019-11-17 05:40 | NUR ---
Pt has had a peaceful night and for the most part has remained in bed with eyes closed appearing to be sleeping with his cpap on. No s/s of distress noted. No c/o pain reported during the shift. Pt remains in stable condition at this time, in bed with cpap on and eyes closed with a regular respiratory rate/rhythym noted. Will continue to monitor.
[2019-11-17 06:13] VITALS: BP 143/81; PULSE 65; TEMP 97.5
--- NOTE | 2019-11-17 09:10 | NUR ---
PATIENT ASSESSMENT COMPLETED. HE IS AWAKE IN BED. BREAKFAST COMPLETED
[2019-11-17 11:37] VITALS: BP 123/59; PULSE 68; TEMP 98.4
--- NOTE | 2019-11-17 12:25 | NUR ---
SW received a call from [facility] about discharge for patient. SW contacted Jose Antonio At [facility] to begin arranging transport. SW faxed over Testing results, updates from 11/15(evening) to current, and discharge paperwork. Sw contacted Jose Antonio to ensure paperwork was received and to confirm time. [facility] asked NATASHA to provide contact number for when transport arrived and to ensure that transport bought Oxygen. NATASHA informed Jose Antonio, and confirmed with [facility]. PAtient will be picked up at 1:30.
[2019-11-17 12:31] VITALS: BP 123/59; PULSE 68; TEMP 98.4
--- NOTE | 2019-11-17 12:39 | NUR ---
PATIENT STATES THAT HIS GOLD WATCH WAS SENT HOME WITH HIS DAUGHTER.
--- NOTE | 2019-11-17 13:15 | NUR ---
REPORT CALLED TO BAKARI AT [facility].
--- NOTE | 2019-11-17 13:30 | NUR ---
PATIENT DISCHARGED TO [facility] SENT WITH HIM.
== END 2019-11-17 13:30 | DRG 939 ==
LOC: MEDICAL 18:25
PROVIDERS: Hospitalist; Internal Medicine Nephrology; Nurse Practitioner; Nurse Practitioner Family; Physician Assistant; Surgery; ADMIT Internal Medicine
PROC: 5A1D70Z Performance of Urinary Filtration, Intermittent, Less than 6 Hours Per Day (ICD-10-PCS; 2019-11-02)
PROC: 03180ZD Bypass Left Brachial Artery to Upper Arm Vein, Open Approach (ICD-10-PCS; principal; 2019-11-14)
DX: R53.81 Other malaise (principal); J96.22 Acute and chronic respiratory failure with hypercapnia; J96.21 Acute and chronic respiratory failure with hypoxia; N18.6 End stage renal disease; K66.1 Hemoperitoneum; J44.1 Chronic obstructive pulmonary disease with (acute) exacerbation; I50.32 Chronic diastolic (congestive) heart failure; I13.2 Hypertensive heart and chronic kidney disease with heart failure and with stage 5 chronic kidney disease, or end stage renal disease; N39.0 Urinary tract infection, site not specified; D62 Acute posthemorrhagic anemia; E66.2 Morbid (severe) obesity with alveolar hypoventilation; I12.0 Hypertensive chronic kidney disease with stage 5 chronic kidney disease or end stage renal disease; E78.5 Hyperlipidemia, unspecified; E87.5 Hyperkalemia; R78.89 Finding of other specified substances, not normally found in blood; E11.22 Type 2 diabetes mellitus with diabetic chronic kidney disease; E11.40 Type 2 diabetes mellitus with diabetic neuropathy, unspecified; G47.30 Sleep apnea, unspecified; I25.10 Atherosclerotic heart disease of native coronary artery without angina pectoris; I27.20 Pulmonary hypertension, unspecified; M10.9 Gout, unspecified; N40.0 Benign prostatic hyperplasia without lower urinary tract symptoms; K59.00 Constipation, unspecified; M51.36 Other intervertebral disc degeneration, lumbar region; Z79.82 Long term (current) use of aspirin; Z87.891 Personal history of nicotine dependence; Z86.14 Personal history of Methicillin resistant Staphylococcus aureus infection
CPT/HCPCS: OP; 99222-AI; 99231-AI; 99232-AI; 99233-AI; A9540; J0690; J1644; J1815; J2704; J2916; J3010; J7030; J7050; J7512; P9016; Q5105

== ENCOUNTER → 2019-12-20 | Outpatient (CLI) | payer MEDICARE ==
[~2019-12-20] MED LIST changes: +COLACE 100100 MG/CAP PO; +FERROUS SU325 MG/TAB PO; +LASIX 80MG TABL80 MG PO; +MIRALAX PA17 GM/Dose PO; +NORCO 325 MG-51 TAB PO; +NOVOLOG 100U100 U/M1 SQ; +PRINIVIL2.5 MG PO; +TYLENOL 325MG325 MG PO
== END ==
LOC: COL.RAD 12:41
DX: G57.21 Lesion of femoral nerve, right lower limb (principal); N18.6 End stage renal disease